=== PATIENT | female | born 1985 | race Caucasian/White ===

== ENCOUNTER → 2019-05-08 12:49 | Outpatient (CLI) | payer OTHER, SELFPAY ==
[2019-05-08 13:24] LABS: Appearance Urine UA CLEAR; Bilirubin Urine UA NEGATIVE (NEGATIVE); Color Urine UA YELLOW; Glucose Urine UA NEGATIVE (Negative); Ketones Urine UA 1+ (NEGATIVE); Leukocyte Esterase Urine UA NEGATIVE (NEGATIVE); Nitrite Urine UA NEGATIVE (Negative); Occult Blood Urine UA TRACE-INTACT (Negative); Protein Urine UA NEGATIVE (Negative); Specific Gravity Urine UA 1.025 (1.000-1.035); Urobilinogen Urine UA 0.2 E.U./dL (0.2)
[2019-05-08 13:25] LABS: Add Manual Diff / Slide Review NO; Basophils Absolute Auto 0 /uL (0-100); Basophils Percent Auto 0.5 % (0-2); Eosinophils Absolute Auto 100 /uL (0-450); Eosinophils Percent Auto 0.7 % (2-4); Hematocrit 38.6 % (36-46); Hemoglobin 13.1 g/dL (12.0-16.0); Lymphocytes Absolute Auto 1800 /uL (1100-4500); Lymphocytes Percent Auto 20.7 % (25-40); Mean Corpuscular HGB Conc 33.9 % (30-36); Mean Corpuscular Hemoglobin 28.5 PG (26-34); Monocytes Absolute Auto 400 /uL (0-900); Monocytes Percent Auto 4.8 % (3-14); Neutrophils Absolute Auto 6500 /uL (1500-7000); Neutrophils Percent Auto 73.3 % (50-75); Platelet Count 206 X10^3/uL (150-400); Red Blood Cell Count 4.59 X10^6/uL (4.0-5.2); Red Cell Distribution Width 13.6 % (11.6-14.8); White Blood Cell Count 8.9 X10^3/uL (4.5-11.0)
[2019-05-08 13:27] LABS: pH Urine UA 6.5 (4.5-8.0)
[2019-05-08 16:52] LABS: Hepatitis B Surface Antigen NEGATIVE s/c (NEGATIVE); Rubella Antibody IgG 46.6 IU/mL (>15)
[2019-05-08 17:06] LABS: HIV 1 & 2 Ab/Ag 4th Gen Combo NEGATIVE (NEGATIVE); Hep C Virus Ab w/Reflex Quant NEGATIVE s/c (NEGATIVE)
[2019-05-10 20:38] LABS: RPR Screen Nonreactive (Nonreactive)
== END ==
PROVIDERS: Referring Provider Obstetrics & Gynecology; Visit Provider Obstetrics & Gynecology
DX: Z34.81 Encounter for supervision of other normal pregnancy, first trimester (principal)
CPT/HCPCS: 36415; 80055; 81003; 86787; 86803; 86850; 86900; 86901; 87086; 87389

== ENCOUNTER → 2019-07-19 12:11 | Outpatient (CLI) | payer OTHER, SELFPAY ==
--- NOTE | 2019-07-19 12:12 | DI.US.S_ITS ---
PROCEDURE: US OB >= 14 WEEKS FETUS INDICATIONS: ANATOMY SCAN OUTSIDE/PRIOR DATING DATA: Last menstrual period (LMP): 02/28/19. LMP-based estimated date of delivery (PINO): 12/05/19. First dating scan (date and location): 05/08/11. Estimated date of delivery (PINO) from first dating scan: 12/06/19. TECHNIQUE: Real-time scanning was performed of the fetus, with image documentation and biometric measurements. Endovaginal scanning: Not performed COMPARISON: None. FINDINGS: General: A single living intrauterine gestation is present. Presentation: Variable Placenta: Placental position is anterior, without previa. Amniotic fluid index: 15.3 cm, normal range is 5-24 cm. heart rate: 143 beats per minute. Maternal cervical canal: 3.2 cm long. Normal lower limit is 2.5 cm. biometrics: Biparietal diameter: 4.9 cm, 20 weeks, 6 days Head circumference: 18.6 cm, 21 weeks, zero days Abdominal circumference: 15.2 cm, 20 weeks, 3 days Femur length: 3.3 cm, 20 weeks, 2 days Estimated gestational age from initial scan: 20 weeks, one day. Composite gestational age from present scan: 20 weeks, 4 days Estimated weight and percentile: 352 g, 61% Measurement variability for biometric dating: +/- 7 days from 14 weeks to 15 weeks 6 days gestation, +/- 10 days from 16 weeks to 21 weeks 6 days gestation, +/- 2 weeks from 22 weeks to 27 weeks 6 days gestation, +/- 3 weeks for 28 weeks gestation or later. weight reference: 4500 g or EFW >90/95% is considered macrosomia or large for gestational age. EFW <10% is small for gestational age. EFW 5% or less is considered intra-uterine growth restriction. Anatomic survey: Neuro: Ventricles are non-dilated at less than 10 mm. Cisterna magna is normal at 3-11 mm. Cerebellum is normal in size and morphology. Nuchal skin fold: Normal at less than 6 mm between 14-21 weeks gestational age. Face: Nose and lips, facial profile are not well seen. Spine: No evidence for spina bifida. Heart: 4-chambered heart is present, with normal ventricular outflow tracts. Diaphragm: Diaphragm is intact. Stomach: Left-sided stomach is present. Kidneys: No hydronephrosis. Normal is less than 5 mm in 2nd trimester, less than 7 mm in 3rd trimester. Cord: 3-vessel cord has orthotopic insertion. Bladder: Normal in size. Extremities: All 4 extremities identified. IMPRESSION: 1. Single live intrauterine . Fetus in variable presentation. heart rate is 143 beats per minute. Normal amount of amniotic fluid. Normal growth. 2. face, nose and lips are not well seen on this study. Rest of anatomic survey is normal. Dictated by: Tarik Meredith M.D. on 07/19/2019 at 16:27 Approved by: Tarik Meredith M.D. on 07/19/2019 at 16:30
== END ==
PROVIDERS: Referring Provider Obstetrics & Gynecology; Visit Provider Obstetrics & Gynecology
DX: Z36.89 Encounter for other specified antenatal screening (principal); O09.522 Supervision of elderly multigravida, second trimester; Z3A.20 20 weeks gestation of pregnancy
CPT/HCPCS: 76811

== ENCOUNTER → 2019-08-16 14:32 | Outpatient (CLI) | payer OTHER, SELFPAY ==
--- NOTE | 2019-08-16 14:33 | DI.US.S_ITS ---
PROCEDURE: US OB LIMITED INDICATIONS: FOLLOW UP FACE OUTSIDE/PRIOR DATING DATA: Last menstrual period (LMP): 02/28/19. LMP-based estimated date of delivery (PINO): 12/05/19. First dating scan (date and location): 05/08/11. Estimated date of delivery (PINO) from first dating scan: 12/06/19. TECHNIQUE: Real-time scanning was performed of the fetus, with image documentation. Endovaginal scanning: Not performed COMPARISON: [facility] OB >= 14 WEEKS FETUS, 07/19/2019, 12:36. [facility] OB <= 14 WEEKS FETUS, 05/08/2019, 12:20. FINDINGS: A single living intrauterine gestation is present. Presentation: Variable. heart rate: 153 beats per minute. Estimated gestational age from initial scan: 24 weeks zero days. Normal appearance of the nose/lips, face. IMPRESSION: Limited examination demonstrating single living intrauterine fetus in variable presentation. Normal appearance of the nose/lips and face Dictated by: Mani Grace M.D. on 08/16/2019 at 16:35 Approved by: Mani Grace M.D. on 08/16/2019 at 16:37
== END ==
PROVIDERS: Referring Provider Obstetrics & Gynecology; Visit Provider Obstetrics & Gynecology
DX: Z36.2 Encounter for other antenatal screening follow-up (principal); Z3A.24 24 weeks gestation of pregnancy
CPT/HCPCS: 76815

== ENCOUNTER → 2019-08-28 12:12 | Outpatient (CLI) | payer OTHER, SELFPAY ==
[2019-08-28 13:49] LABS: Hematocrit 31.1 % (36-46); Hemoglobin 10.9 g/dL (12.0-16.0)
[2019-08-28 14:30] LABS: GTT (PREG) 1 Hour PP 50gm Dose 123 mg/dL (76-139)
== END ==
PROVIDERS: Referring Provider Obstetrics & Gynecology; Visit Provider Obstetrics & Gynecology
DX: Z34.82 Encounter for supervision of other normal pregnancy, second trimester (principal); Z3A.26 26 weeks gestation of pregnancy
CPT/HCPCS: 36415; 82950; 85014; 85018; 86850

== ENCOUNTER 2019-10-02 10:49 | Outpatient (CLI) | payer OTHER, SELFPAY ==
--- NOTE | 2019-10-02 11:18 | PM.OBTRLD ---
Visit Information Visit Information Date of evaluation: 10/02/19 Primary OB Provider: Nona Hicks Reason for Evaluation: Yes non-stress test Comments/Additional reasons for admission: This patient is a 34yo P2 at 31 weeks with an uncomplicated , sent for NST due to persistent HR of 170s-180s in office in setting of copious movement. Vital Signs Vital Signs: VSS, see office note PFSH Medical History AMA (advanced maternal age) multigravida 35+ (Acute) Anemia (Acute) Eczema (Acute) Migraine (Acute) Mild depressive episode arising in period (Acute) (spontaneous vaginal delivery) (Acute) Surgical History [place] teeth extracted (Acute) Family History Father No problems noted. Mother Depression Celiac disease Grandfather Adopted (not a blood relative) Grandmother Adopted (not a blood relative) Grandmother Family estrangement Lung disease Grandfather Family estrangement Family/Other Hypothyroidism Social History marital status: household members: spouse and children pets and animals: Yes education level: college (BS Environmental science : confucianist ecology) occupational status: unemployed current occupational exposures/hazards: No ministerio/latter day: Shinto special ministerio needs: No Smoking Status: Never smoker Evaluation Evaluation Baseline heart rate: 150 Variability: Moderate (11-25) monitor accelerations: Present monitor decelerations: Absent Category of Tracing: I Diagnosis, Plan/Disposition Plan/Disposition Plan: Home with routine precautions and follow up. OB Disposition: home
== END 2019-10-02 11:22 | disposition home or self-care (01) ==
LOC: LABOR 11:14 → OB 10-04 12:42
PROVIDERS: Referring Provider Obstetrics & Gynecology; Visit Provider Obstetrics & Gynecology
DX: O26.893 Other specified pregnancy related conditions, third trimester (principal); R00.0 Tachycardia, unspecified; Z3A.31 31 weeks gestation of pregnancy
CPT/HCPCS: 59025; G0378; G0379

== ENCOUNTER → 2019-11-05 14:17 | Outpatient (CLI) | payer OTHER, SELFPAY ==
[2019-11-06 19:33] LABS: Strep Grp B PCR NEG for Grp B Strep
== END ==
PROVIDERS: Visit Provider Obstetrics & Gynecology
DX: Z34.83 Encounter for supervision of other normal pregnancy, third trimester (principal); Z3A.35 35 weeks gestation of pregnancy
CPT/HCPCS: 87653

== ENCOUNTER 2019-11-21 16:19 | Outpatient (CLI) | payer OTHER, MEDICAID, SELFPAY ==
--- NOTE | 2019-11-21 16:44 | PM.OBTRLD ---
Visit Information Visit Information Date of evaluation: 11/21/19 Primary OB Provider: Nona Hicks Reason for Evaluation: Yes non-stress test Comments/Additional reasons for admission: Patient sent to L&D due to elevated FHR in clinic, no complications or other complaints. Vital Signs Vital Signs: 96/53, HR 81 PFSH Medical History AMA (advanced maternal age) multigravida 35+ (Acute) Anemia (Acute) Eczema (Acute) Migraine (Acute) Mild depressive episode arising in period (Acute) (spontaneous vaginal delivery) (Acute) Surgical History [place] teeth extracted (Acute) Family History Father No problems noted. Mother Depression Celiac disease Grandfather Adopted (not a blood relative) Grandmother Adopted (not a blood relative) Grandmother Family estrangement Lung disease Grandfather Family estrangement Family/Other Hypothyroidism Social History marital status: household members: spouse and children pets and animals: Yes education level: college (BS Environmental science : caodaism ecology) occupational status: unemployed current occupational exposures/hazards: No ministerio/samaritan: Oriental Orthodox special ministerio needs: No Smoking Status: Never smoker Review of Systems Constitutional Constitutional: Reports system reviewed and no additional complaints, except as documented Evaluation Evaluation Baseline heart rate: 150 Variability: Moderate (11-25) monitor accelerations: Present monitor decelerations: Absent Diagnosis, Plan/Disposition Plan/Disposition Plan: Home with scheduled follow up OB Disposition: home
== END 2019-11-21 17:14 | disposition home or self-care (01) ==
LOC: OB 11-22 12:20
PROVIDERS: PCP Obstetrics & Gynecology; Referring Provider Obstetrics & Gynecology; Visit Provider Obstetrics & Gynecology
DX: O36.8330 Maternal care for abnormalities of the fetal heart rate or rhythm, third trimester, not applicable or unspecified (principal); Z3A.38 38 weeks gestation of pregnancy
CPT/HCPCS: 59025; G0378; G0379

== ENCOUNTER 2019-12-03 09:47 | Observation (INO) | payer OTHER, MEDICAID, SELFPAY ==
--- NOTE | 2019-12-03 18:32 | PM.OBTRLD ---
Visit Information Visit Information Date of evaluation: 12/03/19 Primary OB Provider: Nona Hicks Reason for Evaluation: Yes rule out labor Comments/Additional reasons for admission: This patient is a 34yo P2 at 39 weeks gestation presenting for evaluation for labor, with a closed cervix on presentation and contractions q5-6min. Vital Signs Vital Signs: 103/54, HR 74 PFSH Medical History AMA (advanced maternal age) multigravida 35+ (Acute) Anemia (Acute) Eczema (Acute) Migraine (Acute) Mild depressive episode arising in period (Acute) (spontaneous vaginal delivery) (Acute) Surgical History [place] teeth extracted (Acute) Family History Father No problems noted. Mother Depression Celiac disease Grandfather Adopted (not a blood relative) Grandmother Adopted (not a blood relative) Grandmother Family estrangement Lung disease Grandfather Family estrangement Family/Other Hypothyroidism Social History marital status: household members: spouse and children pets and animals: Yes education level: college (BS Environmental science : pentecostal ecology) occupational status: unemployed current occupational exposures/hazards: No ministerio/pentecostalism: Anabaptism special ministerio needs: No Smoking Status: Never smoker Exam Const General: cooperative, healthy appearing and comfortable Evaluation Evaluation Baseline heart rate: 140 Variability: Moderate (11-25) monitor accelerations: Present monitor decelerations: Absent Contraction Frequency (minutes): 5 Category of Tracing: Reactive Diagnosis, Plan/Disposition Plan/Disposition Plan: While I was completing an emergency section, the patient underwent an NST as above. She was avinash q5-6, declined second cervical exam, and was discharged home with routine precautions on patient request. Antepartum precautions were discussed with the patient by nursing staff. OB Disposition: home
== END 2019-12-03 12:35 | disposition home or self-care (01) ==
PROVIDERS: Admitting Provider Obstetrics & Gynecology; PCP Obstetrics & Gynecology; Referring Provider Obstetrics & Gynecology; Visit Provider Obstetrics & Gynecology
DX: O09.523 Supervision of elderly multigravida, third trimester (principal); Z3A.39 39 weeks gestation of pregnancy
CPT/HCPCS: 59025; 59050; G0378; G0379

== ENCOUNTER 2019-12-08 11:52 | Observation (INO) | payer OTHER, MEDICAID, SELFPAY | END 2019-12-08 18:40 | disposition home or self-care (01) | LOC: LABOR 11:57 | PROVIDERS: Admitting Provider Obstetrics & Gynecology; PCP Obstetrics & Gynecology; Referring Provider Obstetrics & Gynecology; Visit Provider Obstetrics & Gynecology | DX: O48.0 Post-term pregnancy (principal); O09.523 Supervision of elderly multigravida, third trimester; Z3A.40 40 weeks gestation of pregnancy | CPT/HCPCS: 59025; 59050; G0378; G0379 ==